=== PATIENT | female | born 1980 | race Caucasian/White ===

== ENCOUNTER 2016-07-13 18:28 | Emergency (ER) | payer MEDICAID ==
[~2016-07-13] VITALS: Ht 142.2 cm; Wt 48.5 kg
[2016-07-13 19:32] VITALS: BP 103/63
[2016-07-13 20:09] LABS: APPEARANCE,URINE CLOUDY (CLEAR); BILIRUBIN,URINE NEGATIVE (NEGATIVE); BLOOD, URINE NEGATIVE (NEGATIVE); COLOR,URINE YELLOW (YELLOW); LEUKOCYTE ESTERASE ,URINE NEGATIVE (NEGATIVE); NITRITE, URINE NEGATIVE (NEGATIVE); PH,URINE 8.5 (5.0-9.0); PROTEIN,URINE NEGATIVE (NEGATIVE); UGLUCOSE NEGATIVE (NEGATIVE); UROBILINOGEN,URINE 0.2 EU/dL (0.2 - 1)
[2016-07-13 20:28] LABS: BASOPHILS # (AUTO) 0.2 K/uL (0.00-0.22); BASOPHILS % (AUTO) 1.9 % (0.0-2.0); EOSINOPHILS # (AUTO) 0.2 K/uL (0-0.4); EOSINOPHILS % (AUTO) 1.8 % (0.0-4.0); HEMATOCRIT 39.5 % (36-48); HEMOGLOBIN 13.1 g/dL (12.0-16.0); LYMPHOCYTES # (AUTO) 2.6 K/uL (2.5-16.5); LYMPHOCYTES % (AUTO) 23.1 % (20.5-51.1); MEAN CORPUSCULAR HEMOGLOBIN 30 pg (27-31); MEAN CORPUSCULAR HGB CONC 33 g/dL (33-37); MEAN CORPUSCULAR VOLUME 91 fL (80-94); MONOCYTES # (AUTO) 0.5 K/uL (0.8-1.0); MONOCYTES % (AUTO) 4.9 % (1.7-9.3); NEUTROPHILS # (AUTO) 7.6 K/uL (1.8-7.7); NEUTROPHILS % (AUTO) 68.3 % (42.2-75.2); PLATELET COUNT (AUTO) 281 K/uL (140-450); RED BLOOD CELL COUNT(AUTO) 4.36 MIL/uL (4.20-5.40); RED CELL DISTRIBUTION WIDTH 12.3 % (11.6-13.7); WHITE BLOOD COUNT (AUTO) 11.1 K/uL (4.8-10.8)
[2016-07-13 20:29] LABS: BACTERIA,URINE RARE /HPF (None Seen); RBC,URINE 0-3 /HPF (0-5); SQUAMOUS EPITHELIAL CELL,UR 0-3 /LPF (0-3 (FEW)); URINE AMORPHOUS PHOSPHATES 4+ /HPF (None Seen); WBC,URINE 0-3 /HPF (0-5)
[2016-07-13 20:42] LABS: ANION GAP 7.1 (8-16); CALCIUM 7.9 mg/dL (8.5-10.1); CARBON DIOXIDE 30.8 mmol/L (21-32); CREATININE 0.8 mg/dL (0.6-1.3); POTASSIUM 3.9 mmol/L (3.5-5.1)
[2016-07-13 20:49] LABS: ALBUMIN 3.9 g/dL (3.4-5.0); TOTAL BILIRUBIN 0.4 mg/dL (0.0-1.0); TOTAL PROTEIN, SERUM 7.2 g/dL (6.4-8.2)
--- NOTE | 2016-07-13 23:02 | NUR ---
TO ER BED 7
--- NOTE | 2016-07-13 23:04 | NUR ---
35 Y/O F W/C/O R FLANK/ BACK PAIN X 5 DAYS. DENIES ANY N/V OR FEVER BUT STATES HAS HAD CHILLS. NO S/S OF DISTRESS AT THIS MOMENT. ER MADE AWARE.
[2016-07-13] MEDS ORDERED: NACL 0.9% 1,000 ML IV ONE (23:10)
[2016-07-13] MEDS ORDERED: KETOROLAC 30 MG/ML VIAL IVP ONE (23:10)
--- NOTE | 2016-07-13 23:55 | NUR ---
PT AWATING FOR RESULTS, CURRENTLY RECEIVING IV FLUIDS. NO S/S OF DISTRESS NOTED.
[2016-07-14 00:23] VITALS: BP 103/59
--- NOTE | 2016-07-14 00:23 | NUR ---
Patient discharged with v/s stable. Written and verbal after care instructions given and explained. Patient alert, oriented and verbalized understanding of instructions. Ambulatory with steady gait. All questions addressed prior to discharge. ID band removed. Patient advised to follow up with PMD OR RETURN TO ER IF CONDITION WORSENS. Rx of MIRALAX AND MOTRIN given. Patient educated on indication of medication including possible reaction and side effects. Opportunity to ask questions provided and answered.
== END 2016-07-14 00:23 | disposition home or self-care (01) ==
LOC: MED 18:28
DX: M54.5 Low back pain (principal); K59.00 Constipation, unspecified; R30.0 Dysuria; F17.200 Nicotine dependence, unspecified, uncomplicated
CPT/HCPCS: 36415; 74176; 80053; 81001; 81025; 83690; 85025; 96361; 96374; 99285; J1885; J7030

== ENCOUNTER 2016-08-14 17:35 | Emergency (ER) | payer MEDICAID ==
[~2016-08-14] VITALS: Ht 154.9 cm; Wt 48.1 kg
[2016-08-14 18:35] VITALS: BP 106/64
--- NOTE | 2016-08-14 19:00 | NUR ---
Patient ambulated to bed 07.
--- NOTE | 2016-08-14 19:20 | NUR ---
PT PRESENTS TO ER W/C/O FEVER AND SORE THROAT X3 DAYS. PT DENIES ANY OTHER MEDICAL HX
[2016-08-14 20:02] VITALS: BP 102/67
--- NOTE | 2016-08-14 20:02 | NUR ---
Patient discharged with v/s stable. Written and verbal after care instructions given and explained. Patient alert, oriented and verbalized understanding of instructions. Ambulatory with steady gait. All questions addressed prior to discharge. ID band removed. Patient advised to follow up with PMD. Rx of PHENERGAN DM SYRUP given. Patient educated on indication of medication including possible reaction and side effects. Opportunity to ask questions provided and answered.
== END 2016-08-14 20:02 | disposition home or self-care (01) ==
LOC: MED 17:35
DX: J02.9 Acute pharyngitis, unspecified (principal)

== ENCOUNTER 2016-11-11 16:54 | Emergency (ER) | payer MEDICAID ==
[~2016-11-11] VITALS: Ht 154.9 cm; Wt 56.7 kg
[2016-11-11 17:00] VITALS: BP 107/56
--- NOTE | 2016-11-11 17:03 | NUR ---
PATIENT PRESENTS TO ED WITH LEFT HAND LACERATION, S/P CUTTING FISH 20 MINUTES AGO. NO TETANUS VACCINES; DENIES N/V/D; SKIN IS PINK/WARM/DRY; AAOX4 WITH EVEN AND STEADY GAIT; LUNGS CLEAR BL; HR EVEN AND REGULAR; PT DENIES ANY FEVER, CP, SOB, OR COUGH AT THIS TIME; PATIENT STATES PAIN OF 9/10 AT THIS TIME; VSS; PATIENT POSITIONED FOR COMFORT; HOB ELEVATED; BEDRAILS UP X2; BED DOWN. ER MD MADE AWARE OF PT STATUS.
[2016-11-11] MEDS ORDERED: NEOMYCIN/POLYMYXIN/BACITRACIN 0.9 GM/1 PKT TP ONE (17:05)
[2016-11-11] MEDS ORDERED: LIDOCAINE 1% 500 MG/50 ML VIAL INJ ONE (17:10)
[2016-11-11 17:36] VITALS: BP 112/64
--- NOTE | 2016-11-11 17:36 | NUR ---
Patient discharged with v/s stable. Written and verbal after care instructions given and explained. Patient verbalized understanding. Ambulatory with steady gait. All questions addressed prior to discharge. Advised to follow up with PMD.
== END 2016-11-11 17:36 | disposition home or self-care (01) ==
LOC: MED 16:54
DX: S61.412A Laceration without foreign body of left hand, initial encounter (principal); W45.8XXA Other foreign body or object entering through skin, initial encounter; Y93.89 Activity, other specified; Y92.89 Other specified places as the place of occurrence of the external cause; Y99.8 Other external cause status
CPT/HCPCS: 12001; 90471; 90715; 99283; J2001

== ENCOUNTER 2016-11-13 16:45 | Emergency (ER) | payer MEDICAID ==
[~2016-11-13] VITALS: Ht 154.9 cm; Wt 45.9 kg
[2016-11-13 16:47] VITALS: BP 101/61
[2016-11-13] MEDS ORDERED: KETOROLAC 60 MG/2 ML VIAL IM ONE (17:10)
[2016-11-13 17:44] VITALS: BP 101/61
== END 2016-11-13 17:35 | disposition home or self-care (01) ==
LOC: MED 16:45
DX: N12 Tubulo-interstitial nephritis, not specified as acute or chronic (principal); I10 Essential (primary) hypertension
CPT/HCPCS: 81002; 81025; 96372; 99283; J1885

== ENCOUNTER 2017-05-15 18:34 | Emergency (ER) | payer MEDICAID ==
[~2017-05-15] VITALS: Ht 162.6 cm; Wt 47.6 kg
[2017-05-15 19:17] VITALS: BP 95/64
--- NOTE | 2017-05-15 19:18 | NUR ---
PT RETURNED TO LOBBY. URINE SAMPLE COLLECTED.
--- NOTE | 2017-05-15 20:12 | NUR ---
AMBULATED TO ER BED 2
[2017-05-15 20:14] LABS: BILIRUBIN,URINE NEGATIVE (NEGATIVE); BLOOD, URINE 3+ (NEGATIVE); COLOR,URINE YELLOW (YELLOW); LEUKOCYTE ESTERASE ,URINE NEGATIVE (NEGATIVE); NITRITE, URINE NEGATIVE (NEGATIVE); UGLUCOSE NEGATIVE (NEGATIVE)
--- NOTE | 2017-05-15 20:15 | NUR ---
PATIENT IS A 36 Y/O FEMALE WHO PRESENTS TO THE ED C/O ABD PAIN. PT STATES, "MY STOMACH HURTS." PT REPORTS 8/10 ACHING PAIN THAT DOES NOT RADIATE. PT DENIES CP, SOB, N/V/D. PT AAOX4, RR EVEN/UNLABORED. PT REPOSITIONED FOR COMFORT, BED IN LOWEST POSITION. ER MD DR. JAUREGUI NOTIFIED. WILL CONTINUE TO MONITOR.
[2017-05-15 20:17] LABS: APPEARANCE,URINE CLEAR (CLEAR)
[2017-05-15 20:37] LABS: RBC,URINE >100 /HPF (0-5); WBC,URINE 0-5 (RARE) /HPF (0-5)
--- NOTE | 2017-05-15 21:13 | NUR ---
Patient appears to be resting comfortably in bed. Vital Signs within normal limits. Respirations even and unlabored.
[2017-05-15 21:23] LABS: BASOPHILS # (AUTO) 0.2 K/uL (0.00-0.22); EOSINOPHILS # (AUTO) 0.1 K/uL (0-0.4); HEMATOCRIT 37.5 % (36-48); HEMOGLOBIN 12.5 g/dL (12.0-16.0); LYMPHOCYTES # (AUTO) 2.7 K/uL (2.5-16.5); MEAN CORPUSCULAR HEMOGLOBIN 31 pg (27-31); MEAN CORPUSCULAR HGB CONC 33 g/dL (33-37); MEAN CORPUSCULAR VOLUME 91 fL (80-94); MONOCYTES # (AUTO) 0.6 K/uL (0.8-1.0); NEUTROPHILS # (AUTO) 3.9 K/uL (1.8-7.7); PLATELET COUNT (AUTO) 248 K/uL (140-450); RED BLOOD CELL COUNT(AUTO) 4.11 MIL/uL (4.20-5.40); RED CELL DISTRIBUTION WIDTH 12.3 % (11.6-13.7); WHITE BLOOD COUNT (AUTO) 7.5 K/uL (4.8-10.8)
[2017-05-15 21:35] LABS: ANION GAP 10.4 (8-16); CARBON DIOXIDE 27.8 mmol/L (21-32); CREATININE 0.6 mg/dL (0.6-1.3); POTASSIUM 4.2 mmol/L (3.5-5.1)
[2017-05-15 21:41] LABS: ALBUMIN 3.6 g/dL (3.4-5.0); TOTAL BILIRUBIN 0.3 mg/dL (0.0-1.0)
[2017-05-15] MEDS ORDERED: MAGNESIUM CITRATE 300 ML BTL PO ONE (22:10)
[2017-05-15] MEDS ORDERED: MAGNESIUM CITRATE 300 ML BTL ONE (22:18)
--- NOTE | 2017-05-15 23:00 | NUR ---
PATIENT IS RESTING AT THIS TIME.
[2017-05-15 23:12] VITALS: BP 110/70
== END 2017-05-15 23:11 | disposition home or self-care (01) ==
LOC: MED 18:34
DX: K59.00 Constipation, unspecified (principal); I10 Essential (primary) hypertension
CPT/HCPCS: 36415; 74176; 76856; 80053; 81001; 81025; 85025; 87086; 99285; Q0092

== ENCOUNTER 2019-06-20 11:17 | Emergency (ER) | payer MEDICAID ==
[~2019-06-20] VITALS: Ht 154.9 cm; Wt 54.9 kg
[2019-06-20 11:36] VITALS: BP 134/88
--- NOTE | 2019-06-20 11:48 | NUR ---
C/O HACKING MOIST COUGH WITH BODYACHES FATIGUE AND FEVER X 2 DAYS
--- NOTE | 2019-06-20 11:50 | NUR ---
FLU SWAB COLLECTED
--- NOTE | 2019-06-20 11:51 | NUR ---
38 Y/O F C/C FEVER/COUGH/SORE THROAT X3 DAYS. PT TAKEN TYLENOL AT HOME WITH NO RELIEF. PER PT FAMILY SICK AT HOME WITH FLU, PT NOT SURE IF UP TO DATE WITH VACCINATIONS. LUNG SOUNDS CLEAR BILATERAL. PT NKA. HX HYPOTENSION. NO RX. NO N/V/D. SIDE RAIL X1. FAMILY AT BEDSIDE.
--- NOTE | 2019-06-20 12:31 | NUR ---
PT RESTING IN BED, SIDE RAIL X1
[2019-06-20 13:03] VITALS: BP 128/74
--- NOTE | 2019-06-20 13:04 | NUR ---
Patient discharged with v/s stable. Written and verbal after care instructions given and explained. Patient alert, oriented and verbalized understanding of instructions. Ambulatory with steady gait. All questions addressed prior to discharge. ID band removed. Patient advised to follow up with PMD. Rx of TAMIFLU/MOTRIN/PROMETHAZINE DM given. Patient educated on indication of medication including possible reaction and side effects. Opportunity to ask questions provided and answered.
== END 2019-06-20 13:04 | disposition home or self-care (01) ==
LOC: MED 11:17
DX: J10.1 Influenza due to other identified influenza virus with other respiratory manifestations (principal); I10 Essential (primary) hypertension
CPT/HCPCS: 87804; 99283

== ENCOUNTER 2021-11-20 01:00 | Emergency (ER) | payer MEDICAID ==
[~2021-11-20] VITALS: Ht 157.5 cm; Wt 68.0 kg
[2021-11-20 01:15] VITALS: BP 115/71
--- NOTE | 2021-11-20 01:19 | NUR ---
PT TAKEN TO BED 5
--- NOTE | 2021-11-20 01:21 | NUR ---
DR BLANDON EXAMINING PT
[2021-11-20 01:30] VITALS: BP 115/71
== END 2021-11-20 01:19 | disposition home or self-care (01) ==
LOC: MED 01:00
DX: S60.444A External constriction of right ring finger, initial encounter (principal); I10 Essential (primary) hypertension; W49.04XA Ring or other jewelry causing external constriction, initial encounter; Y93.89 Activity, other specified; Y92.89 Other specified places as the place of occurrence of the external cause; Y99.8 Other external cause status
CPT/HCPCS: 99284

== ENCOUNTER 2023-10-07 18:33 | Emergency (ER) | payer MEDICAID, OTHER ==
[~2023-10-07] VITALS: Ht 152.4 cm; Wt 59.0 kg
[2023-10-07 18:58] VITALS: BP 137/92; PULSE 108; RESP 18; TEMP 97.6; O2SAT 100
[2023-10-07] MEDS: ACETAMINOPHEN EXTRA STRENGTH 500 MG TAB PO ONE (20:42)
[2023-10-07 21:05] VITALS: BP 131/87; PULSE 100; RESP 18; TEMP 97.7; O2SAT 100
[2023-10-07] MEDS ORDERED: ACET-10509 PO (22:14)
[2023-10-07] MEDS ORDERED: CAPS1ADH5 TP (22:15)
[2023-10-07] MEDS ORDERED: IBUP-1842 PO (22:15)
== END 2023-10-07 22:24 | disposition home or self-care (01) ==
LOC: MED 18:33
DX: S39.012A Strain of muscle, fascia and tendon of lower back, initial encounter (principal); S16.1XXA Strain of muscle, fascia and tendon at neck level, initial encounter; I10 Essential (primary) hypertension; Z79.899 Other long term (current) drug therapy; V49.88XA Car occupant (driver) (passenger) injured in other specified transport accidents, initial encounter; Y93.89 Activity, other specified; Y92.89 Other specified places as the place of occurrence of the external cause; Y99.8 Other external cause status; M79.601 Pain in right arm
CPT/HCPCS: 72050; 72100; 81025; 99284